=== PATIENT | female | born 1950 | race Caucasian/White ===

== ENCOUNTER 2023-06-02 09:16 | Emergency (ER) | payer SELFPAY ==
[2023-06-02 09:23] VITALS: BP 110/68
[2023-06-02 09:59] LABS: Hematocrit 38.4 % (37.0-47.0); Hemoglobin 12.6 g/dL (12.0-16.0); Mean Corp Hgb Conc. 32.8 g/dL (33.0-37.0); Mean Corpuscular Hgb 32.5 pg (27.0-31.0); Mean Platelet Volume 9.4 fL (7.4-10.4); Platelet Count 361 10^3/uL (130-400); Red Blood Cell Count 3.88 10^6/uL (4.20-5.40); Red Cell Dist. Width 12.4 % (11.5-14.5); White Blood Cell Count 7.4 10^3/uL (4.8-10.8)
[2023-06-02 10:10] LABS: ALT (SGPT) 27 U/L (0-35); AST (SGOT) 34 U/L (14-36); Albumin 4.5 g/dl (3.5-5.0); Alkaline Phosphatase 95 U/L (38-126); Blood Urea Nitrogen 20 mg/dl (7-17); Calcium 10.3 mg/dl (8.4-10.2); Carbon Dioxide 28 mmol/L (22-30); Chloride 103 mmol/L (98-107); Glucose 95 mg/dl (70-99); Potassium 5.1 mmol/L (3.5-5.1); Sodium 138 mmol/L (135-145); Total Bilirubin 0.8 mg/dl (0.2-1.3); Total Protein 7.2 g/dl (6.3-8.2); eGFR > 60.00
[2023-06-02 10:29] VITALS: BMI 18.8
--- NOTE | 2023-06-02 10:39 | EDRN ---
Patient given a sandwich,water and rebekah radha. Patient is speaking to Dina on the phone to see what arrangements are being made for housing.
[2023-06-02] MEDS: DUONEB 3 ML INH (10:56)
--- NOTE | 2023-06-02 11:39 | ED.GENMED ---
History of Present Illness
General
Chief Complaint: Fatigue
Source: patient
Exam Limitations: none
Time Seen by Provider: 06/02/23 09:39
Nursing documentation reviewed up to this point in time: agreed with
Travel History
Have you had any contact with someone who has COVID-19?: No
Do you have any symptoms of coronavirus? Fever > 100 degrees, chills, cough, shortness of breath, sore throat, loss of taste or smell, muscle aches, or headache?: No
History of Present Illness
History of Present Illness:
Patient is a 73-year-old female presents to the emergency department stating she has not really had anything to eat or drink for the past 5 days as she is homeless and has no place to stay. Patient denies any real complaints. Patient denies chest
pain, shortness of breath, fever or chills. Patient occasionally has intermittent tingling of her hands and feet. Patient denies any GI or symptoms.
Past History
Past History
ED Past Medical History: Other (Denies any health issues)
Social History
Tobacco: Smoker
Review of Systems
Review of Systems
All Other Systems: ROS reviewed and negative except as documented in HPI and ROS
Constitutional: Reports fatigue; Denies fever or chills
EENT: Reports no symptoms
Respiratory: Reports no symptoms
Cardiac: Reports no symptoms
ABD/GI: Reports no symptoms
: Reports no symptoms
Musculoskeletal: Reports no symptoms
Skin: Reports no symptoms
Neurological: Reports numbness
Hematologic/Lymphatic: Reports no symptoms
Phy Exam
Physical Exam
Physical Exam:
Physical Exam
General: No apparent distress, alert and appropriate, well nourished, well hydrated
HENT: Normocephalic, supple with no lymphadenopathy, no thyromegaly
Eyes: Clear sclera, conjuctiva without injection
Heart: Regular rhythm and rate. No S3, S4. No murmur. No NVD
Lungs: No respiratory distress, no stridor, lung sounds with scattered wheezing but equal bilaterally
Abdomen: Soft, nontender, no organomegaly, no CVA tenderness, BS good
Neuro: Alert and oriented x 3, CN II - XII intact, no motor focality, no cerebellar dysfunction
Skin: no rash
Psychiatric: well kept. interactive and cooperative
Extremities: No edema, cyanosis, tenderness, Good and equal peripheral pulses.
Course
Orders/Labs/Results
Orders:
Orders
06/02/23 09:48
Case Management Consult ONCE
Case Management Consult: Discharge Planning
Requested By:: PHYSICIAN
Comment: Patient is homeless. Was living in [place].Left there because 'it was a bad situation'
06/02/23 09:50
CMP [Comprehensive Metabolic Panel] Urgent
Complete Blood Count/No Diff Urgent
06/02/23 10:42
Ipratropium/Albuterol Sulfate [Duoneb] 3 ml INH R NOW ONE
CR Chest - 2 Views Urgent
Comment:
Reason For Exam: wheezing
Abnormal Lab Results
06/02/23
09:50
RBC 3.88 L 10^6/uL
(4.20-5.40)
MCH 32.5 H pg
(27.0-31.0)
MCHC 32.8 L g/dL
(33.0-37.0)
BUN 20 H mg/dl
(7-17)
Calcium 10.3 H mg/dl
(8.4-10.2)
06/02/23 09:50
06/02/23 09:50
Vital Signs
Initial and Last Documented VS:
Initial Vital Signs
Temp Pulse Resp BP Pulse Ox
97.9 F 94 18 110/68 96
06/02/23 09:23 06/02/23 09:23 06/02/23 09:23 06/02/23 09:23 06/02/23 09:23
Last Documented Vital Signs
Temp Pulse Resp BP Pulse Ox
97.9 F 94 18 110/68 96
06/02/23 09:23 06/02/23 09:23 06/02/23 09:23 06/02/23 09:23 06/02/23 09:23
*Pulse Oximetry
Patient hypoxic: no
*EKG
Interpreted by ED Provider?: NA
*Radio Repairman Interpretation
Rate: Radio Repairman- N/A
*Critical Care Note
Total Time (30-74mins, 75-104mins- exclusive of procedures): Not Applicable
ED Attending Note
-
Portions of this chart may have been created with voice recognition software.� Occasional wrong word or��sound alike� substitutions may have occurred due to the inherent limitations of voice recognition software.
Discharge Plan
Departure
Referrals:
NONE,* [Family Provider] -
Interventions
Interventions:
*Risk Screen - Suicide Last Done: 06/02/23 09:25
*General Assessment Last Done: 06/02/23 10:29
*Neglect/Abuse Screening Last Done: 06/02/23 09:25
ED- Fall Risk Assessment Last Done: 06/02/23 10:29
*ED COVID-19 Vaccine History Last Done: 06/02/23 09:25
ED-Psychological Assessment Last Done: 06/02/23 10:29
--- NOTE | 2023-06-02 13:06 | ED.GENMED ---
History of Present Illness
General
Chief Complaint: Fatigue
Source: patient
Exam Limitations: none
Time Seen by Provider: 06/02/23 09:39
Nursing documentation reviewed up to this point in time: agreed with
Travel History
Have you had any contact with someone who has COVID-19?: No
Do you have any symptoms of coronavirus? Fever > 100 degrees, chills, cough, shortness of breath, sore throat, loss of taste or smell, muscle aches, or headache?: No
History of Present Illness
History of Present Illness:
Patient is a 73-year-old female presents to the emergency department complaining of not having eaten in the last for 5 days due to being homeless. Patient moved out of the [place] [facility] she was and has been on the street. Patient denies fever or
chills, chest pain, shortness of breath or palpitations. Patient denies any GI or symptoms. Patient does have some tingling of the hands and feet intermittently but nothing persistent. Patient has no focal weakness, visual or speech
difficulties. Patient denies not have any balance issues.
Past History
Past History
ED Past Medical History: Other (Denies any health issues)
Social History
Tobacco: Smoker
Review of Systems
Review of Systems
All Other Systems: ROS reviewed and negative except as documented in HPI and ROS
Constitutional: Reports fatigue; Denies fever or chills
EENT: Reports no symptoms
Respiratory: Reports no symptoms
Cardiac: Reports no symptoms
ABD/GI: Reports no symptoms
: Reports no symptoms
Musculoskeletal: Reports no symptoms
Skin: Reports no symptoms
Neurological: Reports numbness
Hematologic/Lymphatic: Reports no symptoms
Phy Exam
Physical Exam
Physical Exam:
Physical Exam
General: No apparent distress, alert and appropriate, well nourished, well hydrated
HENT: Normocephalic, supple with no lymphadenopathy, no thyromegaly
Eyes: Clear sclera, conjuctiva without injection
Heart: Regular rhythm and rate. No S3, S4. No murmur. No NVD, bruit
Lungs: No respiratory distress, no stridor, lung sounds clear and equal bilaterally
Abdomen: Soft, nontender, no organomegaly, no CVA tenderness, BS good
Neuro: Alert and oriented x 3, CN II - XII intact, no motor focality, no cerebellar dysfunction
Skin: no rash
Psychiatric: well kept. interactive and cooperative
Extremities: No edema, cyanosis, tenderness
Scores
Heart Failure Risk
Heart Failure Risk Score: Not Applicable
Heart Score for Chest Pain Patients
STEMI patient?: Not applicable
Withdrawal Assessment of Alcohol
Withdrawal Assessment Completed?: Not applicable
Course
Orders/Labs/Results
Orders:
Orders
06/02/23 09:48
Case Management Consult ONCE
Case Management Consult: Discharge Planning
Requested By:: PHYSICIAN
Comment: Patient is homeless. Was living in [place].Left there because 'it was a bad situation'
06/02/23 09:50
CMP [Comprehensive Metabolic Panel] Urgent
Complete Blood Count/No Diff Urgent
06/02/23 10:42
Ipratropium/Albuterol Sulfate [Duoneb] 3 ml INH R NOW ONE
CR Chest - 2 Views Urgent
Comment:
Reason For Exam: wheezing
Abnormal Lab Results
06/02/23
09:50
RBC 3.88 L 10^6/uL
(4.20-5.40)
MCH 32.5 H pg
(27.0-31.0)
MCHC 32.8 L g/dL
(33.0-37.0)
BUN 20 H mg/dl
(7-17)
Calcium 10.3 H mg/dl
(8.4-10.2)
06/02/23 09:50
06/02/23 09:50
Vital Signs
Initial and Last Documented VS:
Initial Vital Signs
Temp Pulse Resp BP Pulse Ox
97.9 F 94 18 110/68 96
06/02/23 09:23 06/02/23 09:23 06/02/23 09:23 06/02/23 09:23 06/02/23 09:23
Last Documented Vital Signs
Temp Pulse Resp BP Pulse Ox
97.9 F 94 18 110/68 96
06/02/23 09:23 06/02/23 09:23 06/02/23 09:23 06/02/23 09:23 06/02/23 09:23
*Radiology
Radiology exam reviewed: radiology read reviewed ([place])
*Pulse Oximetry
Patient hypoxic: no
*EKG
Interpreted by ED Provider?: NA
*Housing Grant Analyst Interpretation
Rate: Housing Grant Analyst- N/A
*Critical Care Note
Total Time (30-74mins, 75-104mins- exclusive of procedures): Not Applicable
ED Attending Note
-
Portions of this chart may have been created with voice recognition software.� Occasional wrong word or��sound alike� substitutions may have occurred due to the inherent limitations of voice recognition software.
Discharge Plan
Departure
Patient Disposition: Home (Routine Discharge)
Date of Disposition: 06/02/23
Time of Disposition: 13:12
Patient with high blood pressure during this ER visit?: No
Condition: Good
Covid-19: Not Applicable
Discharge Problem:
Fatigue
Instructions: Fatigue (DC)
Referrals:
NONE,* [Family Provider] -
Activity Restrictions/Additional Instructions:
Follow-up with your physician in 6 months to get a repeat chest x-ray for
Interventions
Interventions:
*Risk Screen - Suicide Last Done: 06/02/23 09:25
*General Assessment Last Done: 06/02/23 10:29
*Neglect/Abuse Screening Last Done: 06/02/23 09:25
ED- Fall Risk Assessment Last Done: 06/02/23 10:29
*ED COVID-19 Vaccine History Last Done: 06/02/23 09:25
ED-Psychological Assessment Last Done: 06/02/23 10:29
--- NOTE | 2023-06-02 13:13 | CM ---
ED CM consulted re: homelessness
Bedside meeting with pt
Maureen Lana ([phone]. [phone] is her CM through the [facility]
Pt was placed in emergency housing- notes she doesn't like the landlord and left
Per Maureen, pt on W/L for penit[facility]iary placement but 70 women ahead of her
Emergency housing remains available to pt
Pt tearful throughout meeting
Provided her housing resources along with [facility]
Pt in agreement with return back to emergency housing in [facility]
Maureen aware and will coordinate [employer]
--- NOTE | 2023-06-02 13:28 | EDRN ---
Reviewed discharge instructions with patient. Verbalized understanding.
[2023-06-02 13:29] VITALS: BP 112/68
== END 2023-06-02 13:30 | disposition home or self-care (01) ==
LOC: EMR 09:16
PROVIDERS: EMERGENCY PHYSICIAN Emergency Medicine
DX: R53.83 Other fatigue (principal); F17.200 Nicotine dependence, unspecified, uncomplicated; Z59.00 Homelessness unspecified
CPT/HCPCS: 99283; 94640; 71046; 80053; 85027